=== PATIENT | male | born 1945 | race Caucasian/White ===

== ENCOUNTER → 2016-12-02 | Outpatient (REF) | payer MEDICARE, MEDICAID ==
[~2016-12-02] MED LIST: /AUGM875TA OR; /TIOT18INH INH; ADV500INH INH; ADVAIR INH; ALBUTEROL SULFATE INH; ASPI325T OR; ASPI81TA85 PO; BROVANA INH; CARV3.12 OR; DOXY75CA3 PO; FURO80TA2 OR; GABA-282 PO; GLUC1000 OR; HUMUINJ SC; IMDU30TA PO; ISOS20TA3 OR; LIDO1DIS2 TOP; LISI5TAB OR; Levemir SC; MAGN400T5 PO; MULTIVIT PO; NEUR400C OR; NITR0.4D6 SL; NITR4TASL SL; OMEP20TA7 OR; POTASSIUM OR; SIMV20TA2 OR; SIMV40TA2 PO; TRAM50TA2 PO; ULTRTA OR; VENTAER INH; VICODINES TAB OR; VICT18IN SC; VITAMIN D50000 UNT OR
[2016-12-02 17:12] LABS: MEAN CORPUSCULAR HEMOGLOBIN 25.8 pg (27.0-33.0); MEAN CORPUSCULAR HGB CONC 30.2 g/dl (32.0-36.5); MEAN CORPUSCULAR VOLUME 85.2 fl (80.0-96.0); RED CELL DISTRIBUTION WIDTH 16.3 % (11.5-14.5); WHITE BLOOD COUNT 11.3 K/mm3 (4.0-10.0)
[2016-12-02 17:23] LABS: MAGNESIUM LEVEL 2.2 MG/DL (1.8-2.4)
== END ==
LOC: M SFHCLERA 11:38
PROVIDERS: ATTEND Physician Assistant
DX: E11.65 Type 2 diabetes mellitus with hyperglycemia (principal); E78.2 Mixed hyperlipidemia; R79.0 Abnormal level of blood mineral; E55.9 Vitamin D deficiency, unspecified

== ENCOUNTER → 2017-01-19 | Outpatient (REF) | payer MEDICARE, MEDICAID ==
[2017-01-19 19:28] LABS: PERCENT SATURATION 8.1 % (19.7-50.0)
== END ==
LOC: M LAB REF 17:15
PROVIDERS: ATTEND Internal Medicine Nephrology
DX: D64.9 Anemia, unspecified (principal)

== ENCOUNTER → 2017-04-21 | Outpatient (REF) | payer MEDICARE, MEDICAID | LOC: M LAB REF 17:11 | PROVIDERS: ATTEND Physician Assistant | DX: E11.65 Type 2 diabetes mellitus with hyperglycemia (principal) ==

== ENCOUNTER → 2017-10-12 | Outpatient (REF) | payer MEDICARE, MEDICAID ==
[2017-10-13 12:50] LABS: ESTIMATED AVERAGE GLUCOSE 174 MG/DL (60-110); HEMOGLOBIN A1c 7.7 %
[2017-10-13 12:59] LABS: ALBUMIN 3.3 GM/DL (3.2-5.2); ALBUMIN/GLOBULIN RATIO 0.87 (1.00-1.93); ALKALINE PHOSPHATASE 104 U/L (45-117); ALT/SGPT 22 U/L (12-78); ANION GAP 9 MEQ/L (8-16); AST/SGOT 19 U/L (7-37); BILIRUBIN,TOTAL 0.2 MG/DL (0.2-1.0); BLOOD UREA NITROGEN 22 MG/DL (7-18); CALCIUM LEVEL 8.3 MG/DL (8.8-10.2); CARBON DIOXIDE LEVEL 30 MEQ/L (21-32); CHLORIDE LEVEL 101 MEQ/L (98-107); CHOLESTEROL LEVEL 166 MG/DL (<200); CHOLESTEROL RISK RATIO 5.187 (<5); CREATININE FOR GFR 1.29 MG/DL (0.70-1.30); GLOMERULAR FILTRATION RATE 58.3 (>42); GLUCOSE, FASTING 272 MG/DL (70-100); HDL CHOLESTEROL 32 MG/DL (>40); NON-HDL-C 134 MG/DL; POTASSIUM SERUM 4.4 MEQ/L (3.5-5.1); SODIUM LEVEL 140 MEQ/L (136-145); TOTAL PROTEIN 7.1 GM/DL (6.4-8.2); TRIGLYCERIDES LEVEL 345 MG/DL (<150)
== END ==
LOC: M SFHCLERA 16:53
DX: E78.2 Mixed hyperlipidemia (principal); E11.65 Type 2 diabetes mellitus with hyperglycemia
CPT/HCPCS: 80053

== ENCOUNTER 2019-02-12 08:58 | Day surgery (SDC) | payer MEDICARE, MEDICAID ==
[~2019-02-12] VITALS: Ht 175.3 cm; Wt 136.1 kg
[~2019-02-12 08:58] MED LIST changes: -/TIOT18INH INH; +ACET-683 PO; +ALEV1TAB PO; +DICL1GEL3 TOP; +FURO80TA2 PO; -GABA-282 PO; +GABA-843 PO; +INCR1INH INH; +IRON65TA2 PO; +ISOS30TAB PO; +METF10004 PO; +NOVOINJ12 SC; +NS 1,000 ML IV ONE; +OMEP20TA9 PO; +PROAAER10 INH; -SIMV40TA2 PO; +SIMV40TA20 PO; +SPIR1CAP INH; +TRES1INJ SC; +TRIA1CR80 TOP; +TRUL0.5I SC; +[UNRECOGNIZED DRUG - OTHER] PO
[2019-02-12] MEDS ORDERED: LIDOCAINE 2% INJ 100 MG/5 ML SDV (FOR ANES.) As Ordered ONE (10:06)
[2019-02-12] MEDS ORDERED: propofoL 200 MG/20 ML VIAL As Ordered ONE ×2 (10:06→10:32)
[2019-02-12] MEDS ORDERED: fentaNYL 100 MCG/2 ML INJECTION (J3010) As Ordered ONE (10:13)
--- NOTE | 2019-02-12 10:26 | ROOR ---
Patient Name: Emeka Khan Procedure Date: 02/12/2019 10:07 AM Date of : 1945 Age: 74 Room: [facility] Gender: Male Note Status: Finalized Procedure: Upper Endoscopy + Biopsies Indications: Iron deficiency anemia Providers: Marcellus Bird MD Referring MD: CAITY LIND NP Requesting Provider: Medicines: Monitored Anesthesia Care Complications: No immediate complications. Procedure: Pre-Anesthesia Assessment: - The heart rate, respiratory rate, oxygen saturations, blood pressure, adequacy of pulmonary ventilation, and response to care were monitored throughout the procedure. The Endoscope was introduced through the mouth, and advanced to the second part of duodenum. The upper GI endoscopy was accomplished without difficulty. The patient tolerated the procedure well. Findings: The Z-line was irregular and was found 40 cm from the incisors. Multiple biopsies were obtained with cold forceps for evaluation to rule out Bean's Esophagus randomly at the gastroesophageal junction. A small hiatal hernia was present. Localized mildly erythematous mucosa without bleeding was found in the gastric antrum. Biopsies were taken with a cold forceps for Helicobacter pylori testing. The exam of the duodenum was otherwise normal. Biopsies for histology were taken with a cold forceps in the first portion of the duodenum for evaluation of celiac disease. The exam was otherwise without abnormality. Impression: - Z-line irregular, 40 cm from the incisors. - Small hiatal hernia. - Erythematous mucosa in the antrum. Biopsied. - The examination was otherwise normal. - Multiple biopsies were obtained at the gastroesophageal junction. - Biopsies were taken with a cold forceps for evaluation of celiac disease. - The examination was otherwise normal. Recommendation: - Patient has a contact number available for emergencies. The signs and symptoms of potential delayed complications were discussed with the patient. Return to normal activities tomorrow. Written discharge instructions were provided to the patient. - High fiber diet. - Discharge patient to home. - Follow an antireflux regimen. - Continue present medications. - Await pathology results. - Telephone GI clinic for pathology results in 1 week. - Return to referring physician. - The findings and recommendations were discussed with the patient's family. Marcellus Bird MD Marcellus Bird MD 02/12/2019 10:26:01 AM Electronically signed by Marcellus Bird MD Number of Addenda: 0 Note Initiated On: 02/12/2019 10:07 AM Estimated Blood Loss: Estimated blood loss: none.
--- NOTE | 2019-02-12 10:57 | ROOR ---
Patient Name: Emeka Kahn Procedure Date: 02/12/2019 10:08 AM Date of : 1945 Age: 74 Room: [facility] Gender: Male Note Status: Finalized Procedure: Total Colonoscopy to Cecum + Cold Snare Polypectomy + Hemoclips Indications: Iron deficiency anemia Providers: Marcellus Bird MD Referring MD: CAITY LIND NP Requesting Provider: Medicines: Monitored Anesthesia Care Complications: No immediate complications. Procedure: Pre-Anesthesia Assessment: - The heart rate, respiratory rate, oxygen saturations, blood pressure, adequacy of pulmonary ventilation, and response to care were monitored throughout the procedure. The Colonoscope was introduced through the anus and advanced to the cecum, identified by appendiceal orifice and ileocecal valve. The colonoscopy was performed without difficulty. The patient tolerated the procedure well. The quality of the bowel preparation was good. Findings: The perianal and digital rectal examinations were normal. Non-bleeding internal hemorrhoids were found during retroflexion. The hemorrhoids were small and Grade I (internal hemorrhoids that do not prolapse). Multiple small and large-mouthed diverticula were found in the recto-sigmoid colon, sigmoid colon and descending colon. A small polyp was found at 20 cm proximal to the anus. The polyp was sessile. The polyp was removed with a cold snare. Resection and retrieval were complete. A medium polyp was found in the hepatic flexure. The polyp was sessile. The polyp was removed with a cold snare. Resection and retrieval were complete. To prevent bleeding after the polypectomy, two hemostatic clips were successfully placed (MR conditional). There was no bleeding at the end of the procedure. A medium polyp was found in the ascending colon. The polyp was sessile. The polyp was removed with a cold snare. Resection and retrieval were complete. To prevent bleeding after the polypectomy, one hemostatic clip was successfully placed (MR conditional). There was no bleeding at the end of the procedure. The exam was otherwise without abnormality on direct and retroflexion views. Impression: - Non-bleeding internal hemorrhoids. - Diverticulosis in the recto-sigmoid colon, in the sigmoid colon and in the descending colon. - One small polyp at 20 cm proximal to the anus, removed with a cold snare. Resected and retrieved. - One medium polyp at the hepatic flexure, removed with a cold snare. Resected and retrieved. Clips (MR conditional) were placed. - One medium polyp in the ascending colon, removed with a cold snare. Resected and retrieved. Clip (MR conditional) was placed. - The examination was otherwise normal on direct and retroflexion views. - The exam was otherwise normal to the cecum. Recommendation: - Patient has a contact number available for emergencies. The signs and symptoms of potential delayed complications were discussed with the patient. Return to normal activities tomorrow. Written discharge instructions were provided to the patient. - High fiber diet. - Discharge patient to home. - Continue present medications. - Await pathology results. - Telephone GI clinic for pathology results in 1 week. - Repeat colonoscopy for symptoms only. - Return to referring physician. - The findings and recommendations were discussed with the patient's family. Marcellus Bird MD Marcellus Bird MD 02/12/2019 10:57:00 AM Electronically signed by Marcellus Bird MD Number of Addenda: 0 Note Initiated On: 02/12/2019 10:08 AM Estimated Blood Loss: Estimated blood loss: none.
[2019-02-12 11:20] VITALS: BP 189/90
== END 2019-02-12 11:45 | disposition home or self-care (01) ==
LOC: M OPP 08:58
PROVIDERS: ATTEND Internal Medicine Gastroenterology
DX: D50.9 Iron deficiency anemia, unspecified (principal); K64.0 First degree hemorrhoids; D12.3 Benign neoplasm of transverse colon; D12.2 Benign neoplasm of ascending colon; K57.30 Diverticulosis of large intestine without perforation or abscess without bleeding; K22.8 Other specified diseases of esophagus; K44.9 Diaphragmatic hernia without obstruction or gangrene; K31.89 Other diseases of stomach and duodenum; Z79.4 Long term (current) use of insulin; Z79.899 Other long term (current) drug therapy; Z87.891 Personal history of nicotine dependence
CPT/HCPCS: 43239; 45385; 88305; J3010

== ENCOUNTER → 2019-10-28 | Outpatient (REF) | payer MEDICARE, MEDICAID ==
[~2019-10-28] MED LIST changes: -NS 1,000 ML IV ONE
== END ==
LOC: M LAB REF 17:09
PROVIDERS: ATTEND Internal Medicine Nephrology
DX: N39.0 Urinary tract infection, site not specified (principal)